=== PATIENT | female | born 1980 | race Caucasian/White ===

== ENCOUNTER 2016-07-23 20:00 | Emergency (ER) | payer BC, OTHER ==
[~2016-07-23] VITALS: Ht 170.2 cm; Wt 66.2 kg
[2016-07-23 20:39] VITALS: BP 126/86
[2016-07-23] MEDS ORDERED: TDAP [DIPH/PERTUSSIS/TET] 0.5 ML VIAL IM ONE ×2 (20:53→21:00)
== END 2016-07-23 22:01 | disposition home or self-care (01) ==
LOC: ER 20:05
DX: S61.210A Laceration without foreign body of right index finger without damage to nail, initial encounter (principal); W26.0XXA Contact with knife, initial encounter; Y93.89 Activity, other specified; Y92.89 Other specified places as the place of occurrence of the external cause; Y99.9 Unspecified external cause status
CPT/HCPCS: 12001; 90471; 90715; 99283; A4606; A6402; Z7610